=== PATIENT | male | born 1960 | race Caucasian/White ===

== ENCOUNTER 2018-01-19 10:14 | Emergency (ER) | payer BC ==
[2018-01-19 10:33] VITALS: TEMP 98.3
[2018-01-19] MEDS ORDERED: SODIUM CHLORIDE 0.9% 1,000 ML IV STA (10:47)
--- NOTE | 2018-01-19 10:49 | ED ---
General Adult HPI - General Chief complaint: Abdominal Pain Stated complaint: rt flank pain Time Seen by Provider: 01/19/18 10:38 Source: patient, RN notes reviewed Mode of arrival: ambulatory Limitations: no limitations - History of Present Illness Initial comments: Patient 57-year-old male presenting to the emergency room today with a chief complaint of right lower quadrant pain over the last 4 days. Patient does admit that earlier in the week she did have positive diarrhea. He states this has improved. He states that he still expressing pain right lower quadrant. He describes it as sharp pain at times. He does admit that it's worse with certain movements. He states that it feels similar to pain that he's had in the past when he was told that he had inflammation around his appendix. He states this is back in 2009. Patient denies any other complaints or symptoms. Patient denies any recent fever, chills, shortness of breath, chest pain, back pain, nausea or vomiting, numbness or tingling, dysuria or hematuria, headaches or visual changes, or any other complaints. - Related Data Home Medications Medication Instructions Recorded Confirmed Cyanocobalamin (Vitamin B-12) 1,000 mcg PO DAILY 01/19/18 01/19/18 [Vitamin B-12] Vitamin D3(Unknown Dose) 1 tab PO DAILY 01/19/18 01/19/18 Previous Rx's Medication Instructions Recorded Ciprofloxacin HCl [Cipro] 500 mg PO Q12HR #20 day 01/19/18 metroNIDAZOLE [Flagyl] 500 mg PO TID #21 tab 01/19/18 Allergies Allergy/AdvReac Type Severity Reaction Status Date / Time No Known Allergies Allergy Verified 01/19/18 11:34 Review of Systems ROS Statement: Those systems with pertinent positive or pertinent negative responses have been documented in the HPI. ROS Other: All systems not noted in ROS Statement are negative. Past Medical History Additional Past Medical History / Comment(s): bicuspid valve History of Any Multi-Drug Resistant Organisms: None Reported Past Surgical History: No Surgical Hx Reported Past Psychological History: No Psychological Hx Reported Smoking Status: Never smoker Past Alcohol Use History: None Reported Past Drug Use History: None Reported General Exam - General Exam Comments Initial Comments: General: The patient is awake and alert, in no distress, and does not appear acutely ill. Eye: There is normal conjunctiva bilaterally. No signs of icterus. Ears, nose, mouth and throat: There are moist mucous membranes and no oral lesions. Neck: The neck is supple, there is no tenderness or JVD. Cardiovascular: There is a regular rate and rhythm. No murmur, rub or gallop is appreciated. Respiratory: Lungs are clear to auscultation, respirations are non-labored, breath sounds are equal. No wheezes, stridor, rales, or rhonchi. Gastrointestinal: Soft on palpation. Patient does have tenderness right lower quadrant. No rebound, guarding or CVA tenderness. Musculoskeletal: Normal ROM, no tenderness. Sensation intact. Strength 5/5. Pulses equal bilaterally 2+. Neurological: A&O x 3. CN II-XII intact, There are no obvious motor or sensory deficits. Coordination appears grossly intact. Speech is normal. Skin: Skin is warm and dry and no rashes or lesions are noted. Psychiatric: Cooperative, appropriate mood & affect, normal judgment. Limitations: no limitations Course Vital Signs 01/19/18 01/19/18 01/19/18 10:29 11:30 12:00 Temperature 98.3 F Pulse Rate 71 64 Respiratory 18 12 Rate Blood Pressure 134/82 124/80 118/85 O2 Sat by Pulse 97 96 Oximetry Medical Decision Making - Medical Decision Making Patient reexamined at this time shows no signs of distress. Patient has normal white count. Patient's no fever. Vitals are stable. Patient's CT abdomen and pelvis reviewed and does show evidence for a diverticulitis. Results were discussed with the patient. Options of admission were discussed with patient that he feels comfortable being discharged home. A be started on Cipro and Flagyl. He is advised follow-up family doctor. Return to emergency room if symptoms increase or worsen or for any other concerns. - Lab Data Result diagrams: 01/19/18 11:15 01/19/18 11:15 Lab Results 01/19/18 01/19/18 01/19/18 Range/Units 11:15 11:15 11:15 WBC 8.8 (3.8-10.6) k/uL RBC 5.06 (4.30-5.90) m/uL Hgb 15.5 (13.0-17.5) gm/dL Hct 46.3 (39.0-53.0) % MCV 91.5 (80.0-100.0) fL MCH 30.7 (25.0-35.0) pg MCHC 33.6 (31.0-37.0) g/dL RDW 12.1 (11.5-15.5) % Plt Count 229 (150-450) k/uL Neutrophils % 65 % Lymphocytes % 23 % Monocytes % 6 % Eosinophils % 2 % Basophils % 1 % Neutrophils # 5.7 (1.3-7.7) k/uL Lymphocytes # 2.1 (1.0-4.8) k/uL Monocytes # 0.5 (0-1.0) k/uL Eosinophils # 0.2 (0-0.7) k/uL Basophils # 0.1 (0-0.2) k/uL Sodium 138 (137-145) mmol/L Potassium 4.7 (3.5-5.1) mmol/L Chloride 106 (98-107) mmol/L Carbon Dioxide 23 (22-30) mmol/L Anion Gap 9 mmol/L BUN 13 (9-20) mg/dL Creatinine 0.91 (0.66-1.25) mg/dL Est GFR (CKD-EPI)AfAm >90 (>60 ml/min/1.73 sqM) Est GFR (CKD-EPI)NonAf >90 (>60 ml/min/1.73 sqM) Glucose 105 H (74-99) mg/dL Calcium 9.5 (8.4-10.2) mg/dL Total Bilirubin 1.5 H (0.2-1.3) mg/dL AST 29 (17-59) U/L ALT 40 (21-72) U/L Alkaline Phosphatase 53 (38-126) U/L C-Reactive Protein 13.6 H (<10.0) mg/L Total Protein 7.7 (6.3-8.2) g/dL Albumin 4.5 (3.5-5.0) g/dL Amylase 47 (30-110) U/L Lipase 48 (23-300) U/L Urine Color Yellow Urine Appearance Clear (Clear) Urine pH 6.0 (5.0-8.0) Ur Specific Funk 1.015 (1.001-1.035) Urine Protein Negative (Negative) Urine Glucose (UA) Negative (Negative) Urine Ketones Negative (Negative) Urine Blood Negative (Negative) Urine Nitrite Negative (Negative) Urine Bilirubin Negative (Negative) Urine Urobilinogen <2.0 (<2.0) mg/dL Ur Leukocyte Esterase Negative (Negative) Disposition Clinical Impression: Acute diverticulitis Disposition: HOME SELF-CARE Condition: Good Instructions: Diverticulitis (ED) Additional Instructions: Please use medication as discussed. Please follow-up with family doctor in the next 2 days of symptoms have not improved. Please return to emergency room if the symptoms increase or worsen or for any other concerns. Prescriptions: Ciprofloxacin HCl [Cipro] 500 mg PO Q12HR #20 day metroNIDAZOLE [Flagyl] 500 mg PO TID #21 tab Is patient prescribed a controlled substance at d/c from ED?: No Referrals: Heriberto Mejia MD [Primary Care Provider] - 1-2 days Time of Disposition: 13:02
[2018-01-19 11:31] LABS: Appearance,Urine Clear (Clear); Basophils # (A) 0.1 k/uL (0-0.2); Basophils % (A) 1 %; Bilirubin,Urine Negative (Negative); Blood,Urine Negative (Negative); Color,Urine Yellow; Eosinophils # (A) 0.2 k/uL (0-0.7); Eosinophils % (A) 2 %; Glucose,Urine (UA) Negative (Negative); HCT 46.3 % (39.0-53.0); HGB 15.5 gm/dL (13.0-17.5); Ketones,Urine Negative (Negative); Leukocyte Esterase,Urine Negative (Negative); Lymphocytes # (A) 2.1 k/uL (1.0-4.8); Lymphocytes % (A) 23 %; MCH 30.7 pg (25.0-35.0); MCHC 33.6 g/dL (31.0-37.0); MCV 91.5 fL (80.0-100.0); Mean Platelet Volume 8.1; Monocytes # (A) 0.5 k/uL (0-1.0); Monocytes % (A) 6 %; Neutrophils # (A) 5.7 k/uL (1.3-7.7); Neutrophils % (A) 65 %; Nitrite,Urine Negative (Negative); Platelet Count 229 k/uL (150-450); Protein,Urine Negative (Negative); RBC 5.06 m/uL (4.30-5.90); RDW 12.1 % (11.5-15.5); Specific Gravity,Urine 1.015 (1.001-1.035); Urobilinogen,Urine <2.0 mg/dL (<2.0); WBC 8.8 k/uL (3.8-10.6)
[2018-01-19 11:51] LABS: ALT 40 U/L (21-72); AST 29 U/L (17-59); Albumin 4.5 g/dL (3.5-5.0); Alkaline Phosphatase 53 U/L (38-126); Amylase 47 U/L (30-110); Anion Gap 9 mmol/L; Blood Urea Nitrogen 13 mg/dL (9-20); C Reactive Protein 13.6 mg/L (<10.0); Calcium 9.5 mg/dL (8.4-10.2); Carbon Dioxide 23 mmol/L (22-30); Chloride 106 mmol/L (98-107); Glucose 105 mg/dL (74-99); Lipase 48 U/L (23-300); Sodium 138 mmol/L (137-145); Total Bilirubin 1.5 mg/dL (0.2-1.3); Total Protein 7.7 g/dL (6.3-8.2)
[2018-01-19 11:58] LABS: Potassium 4.7 mmol/L (3.5-5.1)
--- NOTE | 2018-01-19 12:35 | CT ---
EXAMINATION TYPE: CT abdomen pelvis w con DATE OF EXAM: 01/19/2018 COMPARISON: 09/28/2009 HISTORY: 57-year-old male Right lower quadrant pain TECHNIQUE: Contiguous axial scanning of the abdomen and pelvis following administration of 100 ml Iso diandra 300 IV contrast. Delayed images through the kidneys and coronal/sagittal reconstructions perform ed. CT DLP: 949.2 mGycm Automated exposure control for dose reduction was used. FINDINGS: Heart normal size without pericardial effusion. Lung bases clear without pleural effusion. Liver mildly enlarged at 19.1 cm. There is diffuse low attenuation with focal fatty sparing suggested at the attila hepatis. Portal venous system is patent. No biliary ductal dilatation. Gallbladder, adrenal glands, right kidney, spleen, and pancreas appear within normal limits. Subcenti meter hypodensity lateral left kidney too small fractures CT characterization, likely cyst. Scattered nonenlarged mesenteric lymph nodes are present, particularly in the right lower quadrant. Some prominent fluid-filled small bowel loops in the right side of the abdomen without abnormal bowel dilatation. No free air. Appendix is visualized normal. There is right-sided colonic diverticulosis and additional sigmoid diverticulosis. Moderate soft tissue thickening and surrounding inflammatory edema at the level of the cecum were div erticular changes present. Inflammatory changes appear to be centered along the posterior basilar div erticulum, axial image 53 and coronal image 46. Mild tracking adjacent fluid. No free fluid or free a ir seen. Bladder partially distended. The gland measures 4.2 cm wide. No abnormal fluid collection in the pelv is or pelvic lymphadenopathy. Bones: Mild degenerative changes of the hips and lower lumbar spine. No osseous destructive process. IMPRESSION: 1. RIGHT-SIDED COLONIC DIVERTICULOSIS AND ADDITIONAL SIGMOID DIVERTICULOSIS. THERE IS MODERATE WALL T HICKENING AND SURROUNDING INFLAMMATION THAT SEEMS TO BE CENTERED ALONG A CECAL DIVERTICULUM SUGGESTIN G ACUTE DIVERTICULITIS. NO ABSCESS OR FREE AIR. CONSIDER SHORT INTERVAL FOLLOW-UP. DIRECT VISUALIZATI ON CAN ALSO BE PERFORMED IF ROUTINE SCREENING HAS NOT STARTED. 2. HEPATOMEGALY (19.1 CM) WITH HEPATIC STEATOSIS.
[2018-01-19 13:50] VITALS: BP 135/87; PULSE 60; RESP 15
== END 2018-01-19 13:51 | disposition home or self-care (01) ==
LOC: EC 10:14
DX: K57.92 Diverticulitis of intestine, part unspecified, without perforation or abscess without bleeding (principal); Q23.1 Congenital insufficiency of aortic valve
CPT/HCPCS: 36415; 80053; 82150; 83690; 85025; 86140; 81003; 74177; 99284; 96360; Q9967

== ENCOUNTER → 2022-06-25 | Outpatient (CLI) | payer BC ==
--- NOTE | 2022-06-26 07:02 | CT ---
EXAMINATION TYPE: CT angio chest DATE OF EXAM: 06/25/2022 COMPARISON: NONE HISTORY: Thoracic aortic aneurysm. CT DLP: 1017.7 mGycm. Automated Exposure Control for Dose Reduction was Utilized. CONTRAST: CTA scan of the thorax is performed without and with IV Contrast, patient injected with 100 mL of Iso diandra 370, aneurysm protocol. 3D reconstructed images are created on an independent workstation and rev iewed. FINDINGS: LUNGS: Mild emphysematous change in the upper lungs is present. No suspicious focal consolidation. No pleural effusion or pneumothorax is present bilaterally. MEDIASTINUM: Ascending aorta measures up to 4.2 cm at the root. Ascending aorta measures 4.5 cm mid-l evel axial image 77. There is additional focal aneurysm in the arch involving segment containing orig in of the left common carotid artery through the left subclavian artery. There is four-vessel aortic arch with direct origin of the left vertebral artery which is normal variant. Aneurysm measures 3.6 c m in diameter axial image 30. Proximal descending aorta measures up to 3.6 cm in diameter axial image 56. Satisfactory enhancement of the central pulmonary arteries. There are no greater than 1 cm hilar or mediastinal lymph nodes. No cardiomegaly or pericardial effusion is seen. Coronary artery calci fication is present. OTHER: Liver is diffusely low dense consistent with diffuse fatty infiltration. IMPRESSION: Ectatic and aneurysmal thoracic aorta as detailed above measuring up to 4.5 cm in diamete r. Mild emphysematous changes without acute pulmonary process.
== END | disposition home or self-care (01) ==
LOC: RADCTMAIN 13:59
PROVIDERS: ATTEND Internal Medicine Cardiovascular Disease
DX: J43.9 Emphysema, unspecified (principal); I71.21 Aneurysm of the ascending aorta, without rupture
CPT/HCPCS: 71275; Q9967

== ENCOUNTER → 2023-07-23 | Outpatient (CLI) | payer MEDICARE ==
[2023-07-23 11:29] LABS: African American GFR (CKD) 89 (>60 ml/min/1.73 sqM); Anion Gap 8 mmol/L; Blood Urea Nitrogen 18 mg/dL (9-20); Calcium 9.6 mg/dL (8.4-10.2); Carbon Dioxide 26 mmol/L (22-30); Chloride 107 mmol/L (98-107); Glucose 106 mg/dL (74-99); Non-African American GFR(CKD) 77 (>60 ml/min/1.73 sqM); Potassium 5.1 mmol/L (3.5-5.1); Sodium 141 mmol/L (137-145)
--- NOTE | 2023-07-29 20:45 | CT ---
EXAMINATION TYPE: CT angio thor/abd pel aorta CT DLP: 1560.50 mGycm, Automated exposure control for dose reduction was used. DATE OF EXAM: 07/23/2023 12:51 PM COMPARISON: . CLINICAL INDICATION:Male, 63 years old with history of I71.20 thoracic aortic aneurysm; PHH, Aortic a neurysm w/o rupture TECHNIQUE: Dissection protocol: Multiple axial CT images of the chest, abdomen, and pelvis were obtai kenzie prior and to the administration of IV contrast. 3-D reformats and maximum intensity projection fo rmat were performed on a separate workstation. Contrast used:100 mL of Isovue 370 with IV Contrast, Oral contrast used: FINDINGS: ARTERIAL VASCULATURE: Ascending thoracic aorta measures 4.7 cm at the level of the main pulmonary art roselia. At the aortic root measures about 4.4 cm. The aortic arch is tortuous.. The proximal descending thoracic aorta measures 4.1 cm. There is no evidence for intramural hematoma within the aorta on nonc ontrast imaging. There is minimal scattered atherosclerotic plaque throughout the arterial vasculatur e. Three vessel aortic arch is seen. Postcontrast imaging demonstrates no evidence for dissection. The major vessels of the aortic arch ar e patent. The major vessels of the abdominal aorta are patent. The abdominal aorta is normal in cours e and caliber. There is no evidence of aortic dissection, aneurysm or acute aortic injury in the abdo jennie aorta. Great arch vessels patent and normal in course and caliber. Hardware in the distal arc h/proximal descending aorta there is a tortuous course and narrowing suggesting coarctation. Increase d calcific plaque at the site of the coarctation. PULMONARY ARTERIAL VASCULATURE: Normal caliber. No evidence of filling defect to suggest pulmonary em bolus. VENOUS SYSTEM: Unremarkable. Lungs/pleura: The lung parenchyma appears unremarkable. Heart: Within normal limits. Mediastinum: No gross evidence of adenopathy. Lower Neck: No significant findings. Abdomen: Liver: Unremarkable. Gallbladder and Bile ducts: Unremarkable. Pancreas: Unremarkable. Spleen: Unremarkable. Adrenal glands: Unremarkable. Kidneys and Ureters: Unremarkable. No hydronephrosis. Bladder: Unremarkable. Reproductive: Unremarkable. Stomach and Bowel: Stomach and duodenum are unremarkable. Normal appendix identified. No evidence of bowel obstruction. Peritoneum: No evidence of pneumoperitoneum, free fluid, or adenopathy. Musculoskeletal: The osseous structures appear intact. Lymph nodes: No evidence of lymphadenopathy. Abdominal wall/soft tissues: Unremarkable. The 3-D images confirm the 2-D findings. IMPRESSION: 1. No evidence for thoracic aortic dissection. 2. Thoracic aortic aneurysm. 3. Coarctation of the aorta just distal to the aortic arch
== END | disposition home or self-care (01) ==
LOC: RADCTMAIN 10:28
PROVIDERS: ATTEND Internal Medicine Cardiovascular Disease
DX: I71.20 Thoracic aortic aneurysm, without rupture, unspecified (principal); Q25.1 Coarctation of aorta; E78.2 Mixed hyperlipidemia
CPT/HCPCS: 80048; 71275; 36415; 74174; Q9967

== ENCOUNTER → 2024-07-21 | Outpatient (CLI) | payer MEDICARE ==
[2024-07-21 14:33] LABS: African American GFR (CKD) >90 (>60 ml/min/1.73 sqM); Blood Urea Nitrogen 13 mg/dL (9-20); Non-African American GFR(CKD) >90 (>60 ml/min/1.73 sqM)
--- NOTE | 2024-07-21 16:00 | CT ---
EXAMINATION TYPE: CT angio chest DATE OF EXAM: 07/21/2024 COMPARISON: 06/25/2022 CLINICAL INDICATION: Male, 64 years old with history of I71.20 THORACIC AORTIC ANEURYSM; PHH, F/U THO RACIC AORTA ANEURYSM. TECHNIQUE: CTA scan of the thorax is performed without and with IV Contrast, patient injected with 100ml mL of I sovue 370, pulmonary embolism protocol. MIP images are created and reviewed. CT DLP: [address] CTDI: mGy Automated exposure control for dose reduction was used. FINDINGS: There has been interval enlargement of the aneurysm of the ascending thoracic aorta. Previously measu red approximate 4.5 cm and now measures 5 cm. The aortic root is stably dilated at 4.2 cm. There is no mediastinal, hilar or axillary adenopathy. There is no airspace consolidation or abnormal interstitial density. There is no pleural effusion or pneumothorax. There are no suspicious lung masses or nodules. There are no focal osseous lesions. Limited scanning through the upper abdomen reveals fatty infiltration of liver. IMPRESSION: 1. 5.0 cm aneurysm of the ascending thoracic aorta which has grown in the interval previously measuri ng 4.5 cm 2. stable 4.2 cm dilatation of the aortic root. 3. No acute cardiopulmonary disease. [facility], , 07/21/2024 3:58 PM
== END | disposition home or self-care (01) ==
LOC: RADCTMAIN 13:47
PROVIDERS: ATTEND Thoracic Surgery (Cardiothoracic Vascular Surgery)
DX: I71.21 Aneurysm of the ascending aorta, without rupture (principal); Z86.79 Personal history of other diseases of the circulatory system
CPT/HCPCS: 82565; 84520; 71275; 36415; Q9967